=== PATIENT | female | born 1925 | race Caucasian/White ===

== ENCOUNTER 2016-08-28 19:07 | Outpatient (CLI) | payer MEDICARE | END 2016-08-28 19:08 | disposition critical access hospital (66) | DX: R41.82 Altered mental status, unspecified (principal); R53.1 Weakness; R53.83 Other fatigue | CPT/HCPCS: A0425; A0429 ==

== ENCOUNTER 2016-08-28 19:31 | Emergency (ER) | payer MEDICARE | END 2016-08-28 23:35 | disposition home or self-care (01) | DX: R53.1 Weakness (principal); I10 Essential (primary) hypertension; F03.90 Unspecified dementia, unspecified severity, without behavioral disturbance, psychotic disturbance, mood disturbance, and anxiety; K21.9 Gastro-esophageal reflux disease without esophagitis; Z87.891 Personal history of nicotine dependence ==

== ENCOUNTER 2016-08-28 23:06 | Outpatient (CLI) | payer MEDICARE | END 2016-08-28 23:07 | disposition home or self-care (01) | DX: R53.1 Weakness (principal); R41.0 Disorientation, unspecified | CPT/HCPCS: A0425; A0428 ==